=== PATIENT | male | born 1985 | race Caucasian/White ===

== ENCOUNTER 2021-06-06 11:22 | Outpatient (CLI) | payer OTHER, SELFPAY ==
--- NOTE | 2021-06-06 | ECG_ITS ---
Measurements Intervals [place] Rate: 62 P: 59 [place]: 143 QRS: 44 QRSD: 93 T: 31 QT: 350 QTc: 357 Interpretive Statements SINUS RHYTHM NORMAL ECG Electronically Signed On 06-06-2021 16:42:57 [employer] by Jeromy Bardales D.O.
== END 2021-06-06 11:23 | disposition home or self-care (01) ==
PROVIDERS: PCP Nurse Practitioner Family; Visit Provider Nurse Practitioner Psychiatric/Mental Health
DX: F90.1 Attention-deficit hyperactivity disorder, predominantly hyperactive type (principal)
CPT/HCPCS: 93005